=== PATIENT | female | born 1960 | race Caucasian/White ===

== ENCOUNTER 2017-01-26 10:53 | Emergency (ER) | payer OTHER ==
--- NOTE | ~2017-01-26 | CT2 ---
[facility] A Service of [facility] RADIOLOGY TEXT RESULTS PATIENT: REY YIP LOCATION: [facility] : 60 UNIT #: [id number] AGE: [address]: Jameson Reed DO SEX: F ORDER DR: [id number] [facility] [address] [place], [place] [address] [id number] E MR#: [id number] Acc #: [id number] NAME: REY YIP. : 1960 SEX: F STUDY DATE/TIME: 01/26/2017 15:05 UNIT: [facility] ROOM: STUDY DESCRIPTION: CT Abd and Pelv W Cont Attending Physician: Jameson Reed D.O. Ordering Physician: Jameson Reed D.O. Primary Care Physician: Primary Care Physician No MEDICAL IMAGING REPORT This report is preliminary unless electronic signature is present EXAM CT abdomen and pelvis, 01/26/2017 HISTORY Epigastric abdomen pain, nausea and vomiting 2 to 3 days. History of pancreatitis. TECHNIQUE CT abdomen and pelvis performed with intravenous administration of 100 mL Isovue-370. This CT exam was performed with one or more of the following radiation dose reduction techniques: automatic exposure control, adjustment of mA and/or kV according to patient size, and iterative reconstruction. COMPARISON 04/06/2013 FINDINGS Calcified granuloma at the left lung base. Mild cardiac enlargement. Fatty infiltration of the liver. Intra and extrahepatic biliary ductal dilatation. Status post cholecystectomy. The extrahepatic common duct measures approximately 11-12 mm in diameter. Similar appearance in 2013. Degree of intrahepatic biliary ductal dilatation unchanged. No obstructing process seen. Fatty infiltration of the liver without suspicious focal abnormality. Spleen unremarkable. Fatty infiltration of portions of pancreatic neck and head. There is no morphologic evidence of acute pancreatitis at this time. Adrenal glands and kidneys unremarkable. CT PELVIS: No inguinal adenopathy. Urinary bladder unremarkable. Uterus and adnexal structures are unremarkable. No pelvic fluid collections. No pelvic or retroperitoneal adenopathy. Distal esophagus, stomach, small [facility] A [facility] of [facility] RADIOLOGY TEXT RESULTS PAT[facility]: [id number] 60 UNIT #: [id number] AGE: [address]: Jameson Reed DO SEX: F ORDER DR: bowel, colon unremarkable. Uncomplicated sigmoid diverticulosis. Atherosclerotic arterial calcifications. No abdominal aortic aneurysm. Degenerative changes in the spine. Bilateral L5 pars interarticularis defects. Minimal grade 1 anterolisthesis L5 on S1. No change. Posterior disc osteophyte complex L3-L4: Mild spinal canal narrowing. No change. IMPRESSION 1. No clearly acute abnormality seen in the abdomen or pelvis. 2. Stable intra and extrahepatic biliary ductal dilatation compared to 2013. Common duct measures 11-12 mm in diameter. No change. No obstructing process is seen. Appearance likely physiologic in nature and related to prior cholecystectomy. 3. No morphologic findings of acute pancreatitis at this time. Please correlate with clinical presentation and laboratory data. Small percentage of patient's with pancreatitis can have morphologically normal pancreas on CT examination. 4. There are areas of fatty infiltration in the pancreatic neck and head. No suspicious pancreatic mass lesion. 5. Kidneys, uterus, adnexal regions and appendix are unremarkable. 6. Uncomplicated sigmoid diverticulosis. 7. Degenerative changes in the spine as noted. No significant change from 2013. See above. Dictated by... Gregg Reyez M.D. THIS IS AN ELECTRONICALLY VERIFIED REPORT Gregg Reyez M.D. at 01/27/2017 8:13 AM FRIDA/jhoann TD: 01/26/2017 22:19 JOB #: [id number] MEDICAL IMAGING REPORT Page 1 of 1 COPY
[~2017-01-26 10:53] MED LIST: ALBUTEROL17 GM INH; AMITRYPTYLINE; AMITRYPTYLINE PO; ASPIRIN PO; AVALIDE; AVAPRO PO; COLACE PO; DURAGESIC; DURAGESIC TOP; DURAGESIC75 MCG EXT; FERROUS SULFATE PO; HCTZ PO; LISINOPRIL; LISINOPRIL-HCTZ1 T14 PO; LOPRESSOR PO; LORTAB; LORTAB 2.5/5001 TAB PO; MELATONIN5 M1 PO; METOPROLOL SUCC50 MG PO; PREDNISONE PO; PROMETHAZINE HC25 MG PO; PROZAC; PROZAC PO; PROZAC40 MG PO; RESTORIL15 MG PO; ZANAFLEX PO; ZANAFLEX4 M1 PO
[2017-01-26 12:56] LABS: BASOPHIL# 0.1 X10e3 (0-0.3); EOSINOPHIL# 0.1 X10e3 (0-0.7); EOSINOPHIL% 1.2 % (0.0-7.0); HEMATOCRIT 45.7 % (35.0-45.0); HEMOGLOBIN 14.5 gm/dL (12.0-16.0); LYMPHOCYTE# 1.8 X10e3 (1.0-3.5); MEAN CELL VOLUME 82.2 FL (83-96); MEAN CORPUSCULAR HEMOGLOBIN 26.1 PG (28-34); MEAN CORPUSCULAR HGB CONC 31.8 g/dL (30-36); MEAN PLATELET VOLUME 7.7 FL (6.5-11.5); MONOCYTE# 0.7 X10e3 (0-1.0); MONOCYTE% 7.7 % (3.0-12.0); NEUTROPHIL% 69.1 % (40-75); PLATELET COUNT 311 X10e3 (140-420); RED BLOOD COUNT 5.57 X10e (3.90-5.30); RED CELL DISTRIBUTION WIDTH 14.2 % (11.0-15.5); WHITE BLOOD COUNT 8.7 X10e3 (4.0-10.5)
[2017-01-26 12:58] LABS: POC - CKMB 2.9 ng/mL (0.0-7.9); POC - TROPONIN <0.05 ng/mL (<=0.05)
[2017-01-26 12:58] LABS: DIFF IND NO
[2017-01-26 13:29] LABS: BILIRUBIN, DIRECT 0.1 mg/dL (0.0-0.2); BILIRUBIN,INDIRECT 0.6 mg/dL (0.0-0.9); BILIRUBIN,TOTAL 0.7 mg/dL (0.2-2.0); BUN/CREATININE RATIO 15.71; CALCIUM SERUM 9.1 mg/dL (8.4-10.2); CREATININE SERUM 0.7 mg/dL (0.6-1.4); GLOM FILT RATE Estimated 96.2 mL/min (>60); POTASSIUM 3.8 mmol/L (3.5-5.1); PROTEIN TOTAL SERUM 8.2 g/dL (6.0-8.3)
[2017-01-26 14:23] LABS: POC - CKMB 3.5 ng/mL (0.0-7.9); POC - TROPONIN <0.05 ng/mL (<=0.05)
[2017-01-26 14:45] LABS: URINE SOURCE CLEAN CATCH
[2017-01-26 14:50] LABS: URINE APPEARANCE CLOUDY; URINE BILIRUBIN NEG (NEG); URINE BLOOD TRACE (NEG); URINE COLOR YELLOW; URINE GLUCOSE NEG (NEG); URINE KETONE NEG (NEG); URINE LEUKOCYTE ESTERASE 3+ (NEG); URINE NITRATE POS (NEG); URINE PH 6.5 (5-8); URINE PROTEIN NEG (NEG); URINE SPECIFIC GRAVITY 1.016 (1.003-1.035)
[2017-01-26 14:53] LABS: CULTURE INDICATED? YES; URINE BACTERIA AUWI 4+ (NEGATIVE); URINE SQUAMOUS EPITHELIAL CELL NONE SEEN /[HPF]; UWBCS1 AUWI 50-100 (0-5)
[2017-01-26 14:59] LABS: U HYALINE CASTS AUWI 0-2 /[LPF]
== END 2017-01-26 18:10 | disposition home or self-care (01) ==
LOC: CED 10:53
PROVIDERS: Emergency Medicine
DX: N39.0 Urinary tract infection, site not specified (principal); Z91.19 Patient's noncompliance with other medical treatment and regimen; I10 Essential (primary) hypertension; J45.909 Unspecified asthma, uncomplicated; F32.9 Major depressive disorder, single episode, unspecified; Z90.49 Acquired absence of other specified parts of digestive tract
CPT/HCPCS: 36415; 74177; 80048; 80076; 81003; 82553; 83690; 84484; 84703; 85025; 87086; 87088; 87186; 96361; 96374; 96375; 99284; J0696; J2270; J2405; Q9967

== ENCOUNTER 2017-02-07 13:28 | Observation (INO) | payer OTHER ==
--- NOTE | ~2017-02-07 | BMI ---
[facility] Nutrition Therapy DATE: 02/08/17 Patient: REY YIP Physician: SEDRICK Address: [address] [facility] Room/Bed: [address] [place] [address], Zip: [place] [address] Admit Date: 02/07/17 Date of : [birth year] Height: 5 7 Weight: 279 126.6 HIGH BMI NOTE: ANTHROPOMETRICS: HT: 5'7" WT: 126.6 KG BMI: 43.7 DIET: REGULAR RECOMMENDATIONS: 1. ADD A HEART HEALTHY DIET RESTRICTION IN ORDER TO PROMOTE GRADUAL WEIGHT LOSS. Respectfully, MARYLOU FLOREZ RD, LD [facility] and [facility] cc: client file
--- NOTE | ~2017-02-07 | CT4 ---
[facility] A Service of [facility] RADIOLOGY TEXT RESULTS PATIENT: REY YIP LOCATION: [facility] : 60 UNIT #: [id number] AGE: [address]: Lou Escobedo MD SEX: F ORDER DR: [id number] [facility] [address] [place], [place] [address] [id number] I MR#: [id number] Acc #: [id number] NAME: REY YIP. : 1960 SEX: F STUDY DATE/TIME: 02/07/2017 17:39 UNIT: [facility] PCU ROOM: [facility] STUDY DESCRIPTION: CT Abd and Pelv Wo Cont Attending Physician: Lou Escobedo M.D. Ordering Physician: Jessica Mclain M.D. MEDICAL IMAGING REPORT This report is preliminary unless electronic signature is present EXAM CT abdomen and pelvis without contrast HISTORY Vomiting and stomach cramps. History of pancreatitis. Nausea and diarrhea since 12 o'clock 02/07/2017. Prior cholecystectomy. COMPARISON CT abdomen and pelvis 01/26/2017. TECHNIQUE Axial images performed through the abdomen and pelvis without contrast. Multiplanar reconstructed images reviewed at a workstation. This CT exam was performed with one or more of the following radiation dose reduction techniques: automatic exposure control, adjustment of mA and/or kV according to patient size, and iterative reconstruction. FINDINGS Lung bases unremarkable. ABDOMEN: Lung bases unremarkable, except for small amount of left basilar atelectasis. Patient is post cholecystectomy. Liver and spleen unremarkable. There is apparent fatty infiltration of a portion of the pancreas and no convincing evidence of peripancreatic inflammatory change. Correlate with patient's laboratory data. Kidneys and adrenal glands unremarkable. No free air or free fluid. Visualized GI tract unremarkable. PELVIS: Bladder is decompressed. Uterus and adnexa unremarkable. Moderately advanced L2-L3, L3-L4 degenerative disc disease. Moderate obesity. Patient has bilateral L5 pars defects with secondary [facility] A Service of [facility] RADIOLOGY TEXT RESULTS PATIENT: REY YIP LOCATION: [facility] : 60 UNIT #: [id number] AGE: [address]: Lou Escobedo MD SEX: F ORDER DR: degenerative change. IMPRESSION No definite acute intraabdominal or intrapelvic pathology identified. The pancreas demonstrates fatty infiltration but no convincing evidence of peripancreatic inflammatory change. Correlate with patient's laboratory data. Dictated by... Ky Hill M.D. THIS IS AN ELECTRONICALLY VERIFIED REPORT Ky Hill M.D. at 02/08/2017 9:12 PM Lisa TD: 02/08/2017 00:41 JOB #: [id number] MEDICAL IMAGING REPORT Page 1 of 1 COPY
--- NOTE | ~2017-02-07 | EKG ---
PATIENT: REY YIP UNIT #: [id number] Ventricular Rate: 79 BPM Atrial Rate: 79 BPM P-R Interval: 160 ms QRS Duration: 78 ms Q-T Interval: 434 ms QTC Calculation(Bezet): 497 ms P Sycamore: 51 degrees Calculated R Sycamore: -38 degrees Calculated T Sycamore: 24 degrees Diagnosis Line: Normal sinus rhythm Diagnosis Line: Possible Left atrial enlargement Diagnosis Line: Left axis deviation Diagnosis Line: Nonspecific ST abnormality Diagnosis Line: Prolonged QT Diagnosis Line: Abnormal ECG Diagnosis Line: No previous ECGs available Diagnosis Line: Confirmed by REENA MARSH MD ([id number]) on Diagnosis Line: 02/08/2017 3:01:22 PM INTERPRETING MD: ELLE
--- NOTE | ~2017-02-07 | HP ---
Unit #: [id number] #: [id number] Patient: REY YIP [id number] [address] [place], [place] [address] [id number] I MR#: [id number] NAME: REY YIP. ROOM: 305 Age: 57 Sex: F Admission Date: 02/07/2017 : 1960 Attending Physician: Lou Escobedo M.D. Primary Care Physician: Primary Care Physician No HISTORY AND PHYSICAL CHIEF COMPLAINT Vomiting, abdominal pain. HISTORY OF PRESENT ILLNESS The patient is a 57-year-old female with past medical history of pancreatitis, hypertension, depression, chronic low back pain, who presented to the emergency department for evaluation of the above. The patient states that she has had about an 11-day history of abdominal pain. She states that the pain is in her upper abdomen, she describes it as "severe," increasing in intensity over the past couple of days. It is now radiating to the back. The pain is similar to when she has had pancreatitis in the past. She reports more than 10 bouts of nonbloody emesis and more than 8 bouts of nonbloody diarrhea within the past 24 hours. She has had chills but no documented fever. She denies any chest pain. No cough or cold symptoms. Of note, the patient was seen at [facility] emergency department on 01/26/2017 for abdominal pain. She was discharged home. She returns today due to persisting symptoms. In the emergency department, CT of the abdomen and pelvis showed no acute abnormality. Fatty infiltration was noted of the pancreas. Laboratory notable for lipase of 15. Urinalysis shows findings concerning for urinary tract infection. She is being admitted to [facility] for evaluation and further treatment. She received 1 liter of normal saline as well as 1 mg of Dilaudid and 4 mg of Zofran in the emergency department. PAST MEDICAL HISTORY 1. Admission to [facility] 04/06 through 04/11/2013 for pancreatitis. 2. Hypertension. 3. Depression. 4. Chronic low back pain. 5. History of heavy alcohol use, remote. PAST SURGICAL HISTORY 1. Cholecystectomy. 2. Left knee surgery. 3. Back surgery. 4. D and C. ALLERGIES Unit #: [id number] #: [id number] Patient: REY YIP NSAIDs. HOME MEDICATIONS 1. Meloxicam. 2. Cipro. 3. Lisinopril. 4. Prilosec. 5. Prozac. Home medications will need to be reviewed and verified. SOCIAL HISTORY The patient lives with a roommate. She reports occasional alcohol use. She has a history of binge drinking years ago but denies recent binge drinking. She denies tobacco use. Her CODE STATUS is a DO NOT RESUSCITATE. FAMILY HISTORY Notable for her father having a cerebrovascular accident at the age of 44. Her mother had a myocardial infarction. REVIEW OF SYSTEMS A complete review of systems is negative except as indicated in the HPI. The patient states that she recently completed a course of Cipro for urinary tract infection. The patient states that she has lost over 30 pounds within the past two years that she attributes to being more active because she got a dog. PHYSICAL EXAMINATION VITAL SIGNS: Temperature 98.4, pulse 68, respirations 16, blood pressure 184/108, oxygen saturation 100% on room air. GENERAL: The patient is a female who is awake and alert in no acute distress. HEENT: Head is atraumatic. Mucous membranes are dry. NECK: Supple. Trachea is midline. LUNGS: Clear to auscultation bilaterally with no increased work of breathing. HEART: Regular rate and rhythm. ABDOMEN: Soft. She is tender to palpation in the epigastric area. Bowel sounds present in all four quadrants. EXTREMITIES: Nontender with no pedal edema. NEUROLOGIC: Patient is awake and alert. She follows commands. PSYCHIATRIC: Mood and affect are normal. Patient is cooperative. SKIN OF EXAMINED AREAS: Warm and dry. DIAGNOSTIC STUDIES LABORATORY: Complete blood count notable for a white blood cell count of 11.8, hemoglobin 16.3, hematocrit 49.3. Comprehensive metabolic panel notable for sodium of 133, chloride 99, CO2 is 20, anion gap is 14, glucose 143, alkaline phosphatase 134, total protein 9.5, lipase 15, lactic acid 2.2. Urinalysis notable for 1+ leukocyte esterase, 1+ protein, 1+ blood with 10-25 rbc's, 5-10 wbc's. IMAGING: CT of the abdomen and pelvis shows no acute abnormality. There is fatty infiltration of the pancreas. ASSESSMENT The patient is a 57-year-old female with: Unit #: [id number] #: [id number] Patient: REY YIP 1. Abdominal pain. 2. Urinary tract infection. 3. Hypertension, uncontrolled. 4. Depression. 5. Chronic back pain. 6. History of heavy alcohol use, remote. 7. History of pancreatitis. PLAN 1. Admit to intermediate level for observation. 2. N.p.o. and will advance to clear liquids as tolerated. 3. Normal saline at 100 mL per hour. 4. P.r.n. morphine. 5. P.r.n. Zofran. 6. Blood cultures x2. 7. Urine culture and sensitivity on urine in the lab. 8. Rocephin 1 gram IV daily pending results of urine culture. 9. P.r.n. hydralazine. 10. Check EKG and cardiac enzymes. 11. Stool studies. 12. Repeat labs in the morning. 13. Additional workup and consultants based on above. Dictated by Mayra Rosado/ethan TD: 02/07/2017 22:07 JOB #: [id number] HISTORY AND PHYSICAL Page 1 of 1 X Lou Escobedo MD X HISTORY AND PHYSICAL
[2017-02-07 15:07] LABS: BASOPHIL# 0.1 X10e3 (0-0.3); BASOPHIL% 0.5 % (0-2.5); HEMATOCRIT 49.3 % (35.0-45.0); HEMOGLOBIN 16.3 gm/dL (12.0-16.0); LYMPHOCYTE# 1.1 X10e3 (1.0-3.5); LYMPHOCYTE% 9.1 % (17.0-45.0); MEAN CELL VOLUME 79.3 FL (83-96); MEAN CORPUSCULAR HEMOGLOBIN 26.2 PG (28-34); MEAN CORPUSCULAR HGB CONC 33.1 g/dL (30-36); MEAN PLATELET VOLUME 7.3 FL (6.5-11.5); MONOCYTE# 0.3 X10e3 (0-1.0); MONOCYTE% 2.5 % (3.0-12.0); NEUTROPHIL# 10.4 X10e3 (1.5-7.1); NEUTROPHIL% 87.9 % (40-75); PLATELET COUNT 399 X10e3 (140-420); RED BLOOD COUNT 6.21 X10e (3.90-5.30); RED CELL DISTRIBUTION WIDTH 15.1 % (11.0-15.5); WHITE BLOOD COUNT 11.8 X10e3 (4.0-10.5)
[2017-02-07 15:14] LABS: DIFF IND NO
[2017-02-07 15:32] LABS: ALBUMIN SERUM 4.9 g/dL (3.5-5.0); BILIRUBIN, DIRECT 0.2 mg/dL (0.0-0.2); BILIRUBIN,INDIRECT 1.1 mg/dL (0.0-0.9); BILIRUBIN,TOTAL 1.3 mg/dL (0.2-2.0); CALCIUM SERUM 9.8 mg/dL (8.4-10.2); GLOM FILT RATE Estimated 62.5 mL/min (>60); POTASSIUM 3.6 mmol/L (3.5-5.1); PROTEIN TOTAL SERUM 9.5 g/dL (6.0-8.3)
[2017-02-07 17:42] LABS: URINE SOURCE CLEAN CATCH
[2017-02-07 17:47] LABS: URINE APPEARANCE CLOUDY; URINE BLOOD 1+ (NEG); URINE COLOR DK YELLOW; URINE GLUCOSE NEG (NEG); URINE KETONE 1+ (NEG); URINE LEUKOCYTE ESTERASE 1+ (NEG); URINE NITRATE NEG (NEG); URINE PROTEIN 1+ (NEG); URINE SPECIFIC GRAVITY 1.027 (1.003-1.035)
[2017-02-07 17:49] LABS: CULTURE INDICATED? YES; URINE BACTERIA AUWI NEG (NEGATIVE); URINE SQUAMOUS EPITHELIAL CELL OCC /[HPF]
[2017-02-07 17:58] LABS: URINE BILIRUBIN NEG (NEG)
[2017-02-07 21:17] LABS: CK TOTAL 50 IU/L (26-140)
[2017-02-08] MEDS ORDERED: ZESTRIL10 M1 PO (00:15)
[2017-02-08] MEDS ORDERED: DESYREL50 MG PO (00:17)
[2017-02-08] MEDS ORDERED: PROZAC40 MG PO ×2 (00:18)
[2017-02-08] MEDS ORDERED: OMEPRAZOLE20 M2 PO (00:21)
[2017-02-08 07:14] LABS: BASOPHIL# 0.1 X10e3 (0-0.3); BASOPHIL% 0.5 % (0-2.5); HEMATOCRIT 50.1 % (35.0-45.0); HEMOGLOBIN 15.9 gm/dL (12.0-16.0); LYMPHOCYTE# 1.8 X10e3 (1.0-3.5); LYMPHOCYTE% 12.4 % (17.0-45.0); MEAN CELL VOLUME 80.9 FL (83-96); MEAN CORPUSCULAR HEMOGLOBIN 25.6 PG (28-34); MEAN CORPUSCULAR HGB CONC 31.7 g/dL (30-36); MEAN PLATELET VOLUME 7.8 FL (6.5-11.5); MONOCYTE# 1.3 X10e3 (0-1.0); MONOCYTE% 9.4 % (3.0-12.0); NEUTROPHIL% 77.7 % (40-75); PLATELET COUNT 333 X10e3 (140-420); RED BLOOD COUNT 6.19 X10e (3.90-5.30); RED CELL DISTRIBUTION WIDTH 15.1 % (11.0-15.5); WHITE BLOOD COUNT 14.2 X10e3 (4.0-10.5)
[2017-02-08 07:17] LABS: DIFF IND NO
[2017-02-08 09:08] LABS: ALBUMIN SERUM 4.1 g/dL (3.5-5.0); BILIRUBIN,TOTAL 1.1 mg/dL (0.2-2.0); BUN/CREATININE RATIO 26.25; CALCIUM SERUM 9.6 mg/dL (8.4-10.2); CREATININE SERUM 0.8 mg/dL (0.6-1.4); GLOM FILT RATE Estimated 81.9 mL/min (>60); POTASSIUM 3.8 mmol/L (3.5-5.1)
[2017-02-08 09:28] LABS: MB 4.3 ng/ml
[2017-02-08 13:21] LABS: %MB 1.9 % (0.0-4.0); MB 4.2 ng/ml
[2017-02-08] MEDS ORDERED: TRAMADOL HCL50 M1 PO (18:22)
[2017-02-08] MEDS ORDERED: KEFLEX500 MG PO (18:23)
== END 2017-02-08 19:41 | disposition home or self-care (01) ==
LOC: CED 13:28 → CEDOF 19:55 → CED 20:04 → CEDOF 20:04 → C3A PCU 22:18
PROVIDERS: Emergency Medicine; Family Medicine
DX: R10.10 Upper abdominal pain, unspecified (principal); N39.0 Urinary tract infection, site not specified; I10 Essential (primary) hypertension; F32.9 Major depressive disorder, single episode, unspecified; M54.9 Dorsalgia, unspecified; G89.29 Other chronic pain; Z87.898 Personal history of other specified conditions; Z87.19 Personal history of other diseases of the digestive system; Z90.49 Acquired absence of other specified parts of digestive tract; Z82.49 Family history of ischemic heart disease and other diseases of the circulatory system; Z82.3 Family history of stroke
CPT/HCPCS: 36415; 74176; 80048; 80053; 80076; 81003; 82550; 82553; 83605; 83690; 84484; 85025; 87040; 87086; 93005; 96361; 96374; 96375; 96376; 99285; G0378; J0360; J0696; J1170; J2270; J2405